=== PATIENT | female | born 2000 | race Caucasian/White ===

== ENCOUNTER 2018-04-30 10:30 | Emergency (ER) | payer OTHER | END 2018-04-30 11:59 | disposition home or self-care (01) | LOC: FTE 10:30 | DX: H92.02 Otalgia, left ear (principal) | CPT/HCPCS: 99283; Z7502 ==

== ENCOUNTER 2018-05-02 14:41 | Emergency (ER) | payer OTHER | END 2018-05-02 17:09 | disposition home or self-care (01) | LOC: FTE 14:41 | DX: H93.8X3 Other specified disorders of ear, bilateral (principal); R09.81 Nasal congestion | CPT/HCPCS: 99282; Z7502 ==